=== PATIENT | male | born 1955 | race American Indian/Alaskan Native ===

== ENCOUNTER 2018-08-27 13:45 | Emergency (ER) | payer SELFPAY ==
[2018-08-27 15:17] LABS: Basophils # (Auto) 0.1 K/mm3 (0.0-0.1); Eosinophils # (Auto) 0.2 K/mm3 (0.0-0.4); Eosinophils % (Auto) 3.2 % (0.0-4.3); Hematocrit 37.2 % (35.5-45.6); Hemoglobin 12.8 gm/dl (11.8-15.2); Lymphocytes # (Auto) 1.3 K/mm3 (1.2-5.4); Lymphocytes % (Auto) 18.8 % (13.4-35.0); Mean Corpuscular HGB Conc 35 % (32-34); Mean Corpuscular Hemoglobin 28 pg (28-32); Mean Corpuscular Volume 82 fl (84-94); Monocytes # (Auto) 0.6 K/mm3 (0.0-0.8); Platelet Count 197 K/mm3 (140-440); Red Blood Count 4.51 M/mm3 (3.65-5.03); Red Cell Distribution Width 16.7 % (13.2-15.2)
[2018-08-27 15:24] LABS: Alanine Aminotransferase 8 units/L (7-56); Albumin 3.9 g/dL (3.9-5); BUN/Creatinine Ratio 19; Blood Urea Nitrogen 17 mg/dL (9-20); Calcium 8.6 mg/dL (8.4-10.2); Hemolysis Index 13
--- NOTE | 2018-08-27 15:27 | Emergency Department Report ---
HPI - General Chief Complaint: Altered Mental Status Time Seen by Provider: 08/27/18 14:28 - HPI HPI: 63-year-old male presents to the emergency department via EMS from his alf facility for a medical and/or mental health evaluation. The patient is unsure as to why he was sent to the hospital. Patient is unaware that he came from a nursing facility and says that his son's girlfriend was nearby and drove him in to be seen. The patient presents with right eye blindness and is unable to tell me whether or not it is chronic, but it appears to be so. He does admit to a history of seizures but is unable to tell me other past medical history or the name of his primary care physician. I spoke to the patient's daughter, who is listed as his emergency contact and next of kin, Ruthy, who says that the patient has a history of dementia, insomnia. She also says that the facility called her today because lately the patient has been sleeping all day and then at night he has been wandering into other people' s rooms and scaring them. The patient is a former smoker. The patient does have some confusion that the daughter says has been going on since his last seizure in April or May of this year. ED Past Medical Hx - Past Medical History Previous Medical History?: Yes Hx Seizures: Yes - Surgical History Past Surgical History?: No - Social History Smoking Status: Former Smoker Substance Use Type: Alcohol ED Review of Systems ROS: Stated complaint: AMS Other details as noted in HPI Comment: Unobtainable due to pts medical conditions Physical Exam - Physical Exam Vital Signs: Vital Signs 08/27/18 08/27/18 08/27/18 14:01 14:10 14:15 Temperature 98.1 F 98.4 F Pulse Rate 67 66 64 Respiratory 16 15 14 Rate Blood Pressure 125/87 108/68 Blood Pressure 110/73 [Left] O2 Sat by Pulse 95 94 94 Oximetry Physical Exam: GENERAL: The patient is well-developed well-nourished. HENT: Normocephalic. Atraumatic. Patient has moist mucous membranes. EYES: Extraocular motions are intact. The left pupil is reactive to light. The right pupil is fixed and unresponsive but this appears to be chronic. Patient has chronic right-sided ptosis. NECK: Supple. Trachea is midline. CHEST/LUNGS: Clear to auscultation. There is no respiratory distress noted. HEART/CARDIOVASCULAR: Regular. There is no tachycardia. There is no murmur. ABDOMEN: Abdomen is soft, nontender. Patient has normal bowel sounds. There is no abdominal distention. SKIN: Skin is warm and dry. NEURO: The patient is awake, confused but cooperative. The patient has no acute motor or sensory deficits. The patient has normal speech. MUSCULOSKELETAL: There is no tenderness or deformity. There is no evidence of acute injury. ED Course Vital Signs 08/27/18 08/27/18 08/27/18 14:01 14:10 14:15 Temperature 98.1 F 98.4 F Pulse Rate 67 66 64 Respiratory 16 15 14 Rate Blood Pressure 125/87 108/68 Blood Pressure 110/73 [Left] O2 Sat by Pulse 95 94 94 Oximetry ED Medical Decision Making - Lab Data Result diagrams: 08/27/18 14:48 08/27/18 14:48 - EKG Data -: EKG Interpreted by Dc EKG shows normal: sinus rhythm, axis, intervals, QRS complexes, ST-T waves Rate: normal - EKG Data When compared to previous EKG there are: previous EKG unavailable Interpretation: normal EKG - Radiology Data Radiology results: report reviewed CT HEAD WITHOUT CONTRAST: HISTORY: Altered mental status. TECHNIQUE: Sequential 2.5mm CT images. COMPARISON: none. FINDINGS: Cerebral Parenchyma: Frontal craniotomy changes are identified. There is a large area of encephalomalacia in the right frontal lobe measuring up to 4.6 x 4.5 cm in axial plane. Mild cortical encephalomalacia is identified in the anterior left frontal lobe. Please correlate with history. Remaining brain parenchyma the demonstrates normal attenuation. Cerebellum: Within normal limits. Brainstem: Within normal limits. Ventricles: Normal. Sella: Normal. Extra-axial spaces: Normal. Basal Cisterns: Normal. Intracranial Hemorrhage: None. Midline Shift: None. Calvarium: Normal. Sinuses: The left frontal sinus is occluded. The remaining sinuses are adequately aerated. Mastoid Air Cells: There is partial opacification of the right mastoid air cells. The left mastoid air cells are clear. Visualized Orbits: Normal. IMPRESSION: Surgical changes and encephalomalacia in both frontal regions as described. No acute intracranial process is identified. Transcribed By: TTR Dictated By: ELENA WHITFIELD JR, MD Electronically Authenticated By: ELENA WHITFIELD JR, MD Signed Date/Time: 08/27/18 1529 - Medical Decision Making This patient appears to have been sent in for an evaluation because he is sleeping during most of the day, having insomnia at night, and then walking around into other people's rooms at his nursing facility and scaring or irritating them. I spoke to the patient's daughter who says that the patient's current level of confusion has been baseline for him since he last had his seizure in April or May. A CT scan of the head was done that does not show any bleed, shift, mass, ischemia or any other acute process. The patient's labs have been unremarkable including a normal CBC, CMP, TSH level, urinalysis and urine drug screen. Vital signs stable throughout his ED course. The patient has been calm throughout his ED course. He was seen by the psych assessment team who agrees that the patient does not appear to require a 1013 are to be made involuntary inpatient psychiatric admission. Since the patient's labs and vitals have been unremarkable and were normal, the patient appears to be at his baseline level of mental status and confusion, and does not appear to meet criteria to be made a 1013, he will be sent back to the nursing facility. I believe that part of the daughter's concern is that he is only allowed to be at this facility for a total of 60 days and she does not feel that she is able to care for him after that time. I expressed to her the need to contact either the [facility] or the nursing facility and get in touch with a parking enforcement officer about her future options. I expressed to the daughter and wrote on the discharge paperwork that the patient should be returned to the closest emergency department with any further concerns or any acute distress. - Differential Diagnosis dementia, UTI, dysrhythmia, hypoglycemia, psychosis Critical Care Time: No Critical care attestation.: If time is entered above; I have spent that time in minutes in the direct care of this critically ill patient, excluding procedure time. ED Disposition Clinical Impression: History of seizures Dementia Qualifiers: Dementia type: unspecified type Dementia behavioral disturbance: without behavioral disturbance Qualified Code(s): F03.90 - Unspecified dementia without behavioral disturbance Disposition: DC-01 TO HOME OR SELFCARE Is pt being admited?: No Condition: Stable Instructions: Dementia (ED) Additional Instructions: Please follow-up with your primary care physician in the next few days. I am providing a referral to the [facility]. Return to the emergency Department with any worsening of your symptoms or any acute distress. Referrals: [facility] [Outside] - [facility] [Outside] - [facility] [Primary Care Provider] - [place] Time of Disposition: 18:47
--- NOTE | 2018-08-27 15:30 | Cat Scan Report ---
CT HEAD WITHOUT CONTRAST: HISTORY: Altered mental status. TECHNIQUE: Sequential 2.5mm CT images. COMPARISON: none. FINDINGS: Cerebral Parenchyma: Frontal craniotomy changes are identified. There is a large area of encephalomalacia in the right frontal lobe measuring up to 4.6 x 4.5 cm in axial plane. Mild cortical encephalomalacia is identified in the anterior left frontal lobe. Please correlate with history. Remaining brain parenchyma the demonstrates normal attenuation. Cerebellum: Within normal limits. Brainstem: Within normal limits. Ventricles: Normal. Sella: Normal. Extra-axial spaces: Normal. Basal Cisterns: Normal. Intracranial Hemorrhage: None. Midline Shift: None. Calvarium: Normal. Sinuses: The left frontal sinus is occluded. The remaining sinuses are adequately aerated. Mastoid Air Cells: There is partial opacification of the right mastoid air cells. The left mastoid air cells are clear. Visualized Orbits: Normal. IMPRESSION: Surgical changes and encephalomalacia in both frontal regions as described. No acute intracranial process is identified.
[2018-08-27 16:04] LABS: Bilirubin,Urine NEG (Negative); Blood,Urine NEG (Negative); Color,Urine Yellow (Yellow); Mucus,Urine FEW /HPF; Protein,Urine <15 mg/dL mg/dL (Negative); Sperm,Urine 1+ /HPF (NP); Urobilinogen,Urine < 2.0 mg/dL (<2.0); WBC,Urine < 1.0 /HPF (0.0-6.0)
[2018-08-27 16:31] LABS: Amphetamine Screen,Urine PRESUMPTIVE NEGATIVE; Benzodiazepines Screen,Urine PRESUMPTIVE NEGATIVE; Cannabinoid Screen,Urine PRESUMPTIVE NEGATIVE; Cocaine Screen,Urine PRESUMPTIVE NEGATIVE; Methadone Screen,Urine PRESUMPTIVE NEGATIVE; Opiate Screen,Urine PRESUMPTIVE NEGATIVE
[2018-08-27 23:28] VITALS: BP 128/84
== END 2018-08-28 01:35 | disposition home or self-care (01) ==
LOC: ED 13:45
DX: F03.90 Unspecified dementia, unspecified severity, without behavioral disturbance, psychotic disturbance, mood disturbance, and anxiety (principal); G47.00 Insomnia, unspecified; R56.9 Unspecified convulsions; Z87.891 Personal history of nicotine dependence
CPT/HCPCS: 36415; 70450; 80053; 80307; 81001; 84443; 85025; 93005; 93010; 99285; G0480; 80320